=== PATIENT | female | born 1980 | race Caucasian/White ===

== ENCOUNTER 2018-09-14 10:03 | Emergency (ER) | payer OTHER ==
[2018-09-14] MEDS: LIDOCAINE 1% (MPF) 5 ML VIAL INJ (10:55)
[2018-09-14] MEDS: DIPHTH/TET/ACEL PERTUSS (ADULT) 0.5 ML VIAL IM* (12:09)
== END 2018-09-14 12:16 | disposition home or self-care (01) ==
LOC: FTE 10:03
DX: S61.011A Laceration without foreign body of right thumb without damage to nail, initial encounter (principal); W26.8XXA Contact with other sharp object(s), not elsewhere classified, initial encounter; Y92.9 Unspecified place or not applicable
CPT/HCPCS: 12001; 90471; 90715; 99283-25

== ENCOUNTER 2018-09-16 09:24 | Emergency (ER) | payer OTHER | END 2018-09-16 10:24 | disposition home or self-care (01) | LOC: FTE 09:24 | DX: Z48.01 Encounter for change or removal of surgical wound dressing (principal) | CPT/HCPCS: 99281; Z7502 ==

== ENCOUNTER 2018-09-21 09:47 | Emergency (ER) | payer OTHER | END 2018-09-21 11:26 | disposition home or self-care (01) | LOC: FTE 09:47 | DX: Z48.02 Encounter for removal of sutures (principal) | CPT/HCPCS: 99281; Z7502 ==